=== PATIENT | female | born 1985 | race Caucasian/White ===

== ENCOUNTER 2017-04-18 12:11 | Emergency (ER) | payer OTHER ==
[2017-04-18 12:18] VITALS: BMI 22.8
[2017-04-18 13:33] LABS: HCG,QUALITATIVE URINE POSITIVE
[2017-04-18 13:35] LABS: URINE APPEARANCE SLCLOUDY; URINE BILIRUBIN NEGATIVE (NEGATIVE); URINE BLOOD 3+ (NEGATIVE); URINE COLOR LTYELLOW; URINE GLUCOSE (UA) NEGATIVE (NEGATIVE); URINE KETONE NEGATIVE (NEGATIVE); URINE NITRITE NEGATIVE (NEGATIVE); URINE PROTEIN NEGATIVE (NEGATIVE); URINE UROBILINOGEN NEGATIVE mg/dL (0.2-1.0)
[2017-04-18 13:36] LABS: URINE LEUK ESTERASE 1+ (NEGATIVE)
[2017-04-18 13:40] LABS: EPI CELLS RARE /HPF (FEW); URINE MUCUS RARE
[2017-04-18 14:10] LABS: BASO % 0.6 % (0-2.0); HEMATOCRIT 38.2 % (32.4-45.2); HEMOGLOBIN 12.5 GM/dL (10.7-15.3); LYMPH % 20.3 % (8-40); MCH 29.2 pg (25.7-33.7); MCHC 32.8 g/dl (32.0-36.0); MEAN CELL VOLUME 89.1 fl (80-96); MEAN PLT VOLUME 10.6 fl (7.5-11.1); MONO % 7.8 % (3.8-10.2); NEUT % 67.3 % (42.8-82.8); PLATELET COUNT 160 K/MM3 (134-434); RBC 4.28 M/mm3 (3.60-5.2); RDW 12.8 % (11.6-15.6); WHITE BLOOD COUNT 9.4 K/mm3 (4.0-10.0)
--- NOTE | 2017-04-18 14:10 | PDOC ---
History of Present Illness - General Chief Complaint: Vaginal Bleeding Stated Complaint: ABD PAIN (10 WKS ) Time Seen by Provider: 04/18/17 13:29 History Source: Patient, Spouse Exam Limitations: Language Barrier ( translating) - History of Present Illness Initial Comments: 04/18/17 14:08 The patient is a 31F with no PMH at 10 weeks by LMP (Jan 27) who presents to the ED with 3 days of vaginal bleeding and suprapubic pain. The patient states that the pain comes and goes, does not radiate, and is not made better or worse with anything. The vaginal bleeding is described as spotting, going through about 4 pads/day for 3 days. She has not passed any clots. She denies vaginal discharge. She denies dysuria, fever, chills, flank pain, nausea, vomiting. Past History - Past Medical History Allergies/Adverse Reactions: Allergies Allergy/AdvReac Type Severity Reaction Status Date / Time No Known Allergies Allergy Verified 04/18/17 12:18 Home Medications: Ambulatory Orders Nitrofurantoin Monohyd/M-Cryst [Macrobid -] 100 mg PO BID #14 capsule 04/18/17 COPD: No - Suicide/Smoking/Psychosocial Hx Smoking History: Never smoked Hx Alcohol Use: No Drug/Substance Use Hx: No Substance Use Type: None Review of Systems - Review of Systems Able to Perform ROS?: Yes Comments:: 04/18/17 14:42 GENERAL/CONSTITUTIONAL: No fever or chills. No weakness. HEAD, EYES, EARS, NOSE AND THROAT: No change in vision. No ear pain or discharge. No sore throat. GASTROINTESTINAL: Positive for suprapubic abdominal pain. No nausea, vomiting, diarrhea, or constipation. GENITOURINARY: Positive for vaginal bleeding. No dysuria, frequency, hematuria, or change in urination. CARDIOVASCULAR: No chest pain, palpitations, or lightheadedness. RESPIRATORY: No cough, wheezing, shortness of breath, or hemoptysis. MUSCULOSKELETAL: No joint or muscle swelling or pain. No neck or back pain. SKIN: No rash or lesions. NEUROLOGIC: No headache, numbness, tingling, weakness, loss of consciousness, or change in strength/sensation. ENDOCRINE: No increased thirst. No abnormal weight change. HEMATOLOGIC/LYMPHATIC: No anemia, easy bleeding, or history of blood clots. ALLERGIC/IMMUNOLOGIC: No hives or skin allergy. Is the patient limited Latvian proficient: No *Physical Exam - Vital Signs Last Vital Signs Temp Pulse Resp BP Pulse Ox 99.6 F 98 H 20 114/59 100 04/18/17 12:15 04/18/17 12:15 04/18/17 12:15 04/18/17 12:15 04/18/17 12:15 - Physical Exam Comments: 04/18/17 14:44 GENERAL: Well developed, well nourished. Awake and alert. No acute distress. HEENT: Normocephalic, atraumatic. Hearing grossly normal. Moist mucous membranes. NECK: Supple. Full ROM. No JVD. CARDIOVASCULAR: Regular rate and rhythm. No murmurs, rubs, or gallops. PULMONARY: No evidence of respiratory distress. Lungs clear to auscultation bilaterally. No wheezing, rales or rhonchi. ABDOMINAL: Soft. Non-tender. Non-distended. No rebound or guarding. GENITOURINARY: No CVA tenderness bilaterally. MUSCULOSKELETAL: Normal range of motion at all joints. No bony deformities or tenderness. PELVIC: Cervical os fingertip. Mild amount of blood seen in vaginal vault. String-like clots seen in vagina. No CMT. No adnexal tenderness or masses. EXTREMITIES: No cyanosis. No clubbing. No edema. No calf tenderness. SKIN: Warm and dry. Normal capillary refill. No rashes. No jaundice. NEUROLOGICAL: Alert, awake, appropriate. Cranial nerves 2-12 intact. Normal speech. Gait is normal without ataxia. PSYCHIATRIC: Cooperative. Good eye contact. Appropriate mood and affect. ED Treatment Course - LABORATORY CBC & Chemistry Diagram: 04/18/17 13:44 04/18/17 13:30 - ADDITIONAL ORDERS Additional order review: Laboratory Results 04/18/17 13:11 Urine Color Ltyellow Urine Appearance Slcloudy Urine pH 6.0 Ur Specific [place] 1.021 Urine Protein Negative Urine Glucose (UA) Negative Urine Ketones Negative Urine Blood 3+ H Urine Nitrite Negative Urine Bilirubin Negative Urine Urobilinogen Negative Urine WBC (Auto) 42 Urine RBC (Auto) 220 Ur Epithelial Cells Rare Urine Mucus Rare Urine HCG, Qual Positive - RADIOLOGY Radiology Studies Ordered: Category Date Time Status TRANSVAGINAL US PREG [US] Stat Ultrasound 04/18/17 13:44 Ordered Medical Decision Making - Medical Decision Making 04/18/17 14:44 The patient is a 31F with no PMH, at 10 weeks by LMP who presents to the ED with complaints of vaginal bleeding. I am concerned for an ectopic or . Will order labs and imaging. Will monitor closely. 04/18/17 14:53 CBC WNL. UA showing 3+ blood. Pending U/S. 04/18/17 16:46 US read showing: An intrauterine gestational sac is seen corresponding to an approximate gestational age of 6 weeks 6 days. No associated embryonic pole is noted and therefore the study is strongly suggestive of an anembryonic gestation. Correlate with beta hCG levels. Consider follow-up sonography. Within the gestational sac a 1.7 x 0.7 cm cystlike structure is noted which may represent an enlarged yolk sac versus intraluminal debris. Will give new patient escort referral and will need to trend B-HCG. Will treat possible UTI with macrobid. Patient understands and is ready for d/c. *DC/Admit/Observation/Transfer Diagnosis at time of Disposition: Anembryonic - Discharge Dispostion Disposition: HOME Condition at time of disposition: Stable Admit: No - Prescriptions Prescriptions: Nitrofurantoin Monohyd/M-Cryst [Macrobid -] 100 mg PO BID #14 capsule - Referrals Referrals: Sher Marin MD [Staff Physician] - - Patient Instructions Printed Discharge Instructions: DI for Miscarriage Additional Instructions: Please return to the ER if symptoms persist, worsen, or new symptoms arise. Please follow up with your primary care physician in 2-3 days. Please follow up with the new patient escort, Dr. Marin, in 1-3 days. Please return to the ER if you have any signs or symptoms of chest pain, shortness of breath, uncontrollable fever, chills, nausea, vomiting, numbness, tingling, or weakness in any part of your body, changes in vision, or slurred speech. Please come back if you have any increased vaginal bleeding and abdominal pain. Por favor regrese a la melissa de emergencias si los sntomas persisten, empeoran o surgen nuevos sntomas. Por favor, jeff un seguimiento con jackson mdico de atencin primaria en 2-3 paula. Por favor, jeff un seguimiento con el OB / [employer], Dr. Marin, en 1-3 paula. Por favor regrese a la melissa de emergencia si tiene signos o sntomas de dolor en el pecho, dificultad para respirar, fiebre incontrolable, escalofros, n useas, vmitos, entumecimiento, hormigueo o debilidad en cualquier parte de jackson cuerpo, cambios en la visin o dificultad para hablar. Vuelva por favor si tiene un aumento de sangrado vaginal y dolor abdominal. Print Language: ENGLISH - Post Discharge Activity
[2017-04-18 14:25] LABS: INR 1.01 (0.82-1.09); PROTHROMBIN TIME (PATIENT) 11.4 SEC (9.98-11.88)
[2017-04-18 14:28] LABS: ACTIVATED PTT 32.3 SECONDS (26.9-34.4)
[2017-04-18 14:56] LABS: ALBUMIN 3.8 g/dl (3.4-5.0); ANION GAP 9 (8-16); BLOOD UREA NITROGEN 10 mg/dL (7-18); CALCIUM 8.8 mg/dL (8.5-10.1); CHLORIDE 105 mmol/L (98-107); CO2 23 mmol/L (21-32); CREATININE 0.6 mg/dL (0.55-1.02); GLUCOSE,RANDOM 85 mg/dL (74-106); POTASSIUM 4.3 mmol/L (3.5-5.1); SGOT/AST 11 U/L (15-37); SGPT/ALT 25 U/L (12-78); SODIUM 137 mmol/L (136-145); TOT PROT 7.3 g/dl (6.4-8.2)
[2017-04-18 15:15] LABS: ALK PHOS 56 U/L (45-117); BILIRUBIN,TOTAL 0.6 mg/dL (0.2-1.0)
--- NOTE | 2017-04-18 16:12 | PDOC ---
Attending Attestation - Resident Resident Name: Rafa Perales - ED Attending Attestation I have performed the following: I have examined & evaluated the patient, The case was reviewed & discussed with the resident, I agree w/resident's findings & plan, Exceptions are as noted - Physicial Exam PE: 04/18/17 16:11 Patient is awake and alert, afebrile, hemodynamically stable nc, atr perrla, eomi cta + mild suprapubic ttp Pelvic exam: See note by Dr. Perales - Medical Decision Making 04/18/17 16:11 Patient is a 31-year-old female, 2 para 1 at 10 weeks gestation who presents with suprapubic abdominal pain and vaginal bleeding. Differential diagnosis includes ectopic versus threatened AB versus missed AB. We' ll obtain CBC/beta-HCG/type and screen/transvaginal ultrasound. Will reassess. <Isma Acosta - Last Filed: 04/18/17 16:10> - HPI HPI: 04/18/17 16:14 The patient is a 31 year old female approx 10 weeks , with no significant past medical history, who presents to the emergency department with , approx. 3 days of vaginal bleeding and suprapubic pain. Patient reports the suprapubic pain as intermittent, non radiating and not affected by movement. Patient describes the vaginal bleeding as spotting and denies dysuria or discharge. She denies recent fevers, chills, headache or dizziness. She denies recent nausea, vomit, diarrhea or constipation. She denies recent chest pain or shortness of breath. Documentation prepared by Johnathon Valles, acting as medical practice manager for Isma Acosta MD. <Johnathon Valles - Last Filed: 04/18/17 16:15>
[2017-04-18 17:44] VITALS: BP 104/62; PULSE 84; TEMP 98.5
== END 2017-04-18 17:35 | disposition home or self-care (01) ==
LOC: JER 12:11
DX: O26.891 Other specified pregnancy related conditions, first trimester (principal); O02.0 Blighted ovum and nonhydatidiform mole; Z3A.01 Less than 8 weeks gestation of pregnancy
CPT/HCPCS: 36415; 76817-TC; 80053; 81003; 81015; 84702; 84703; 85025; 85610; 85730; 86850; 86900; 86901; 99283-25

== ENCOUNTER 2017-04-20 15:18 | Emergency (ER) | payer OTHER ==
--- NOTE | 2017-04-20 15:20 | PDOC ---
Rapid Medical Evaluation Time Seen by Provider: 04/20/17 15:19 Medical Evaluation: Allergies Allergy/AdvReac Type Severity Reaction Status Date / Time No Known Allergies Allergy Verified 04/20/17 15:19 04/20/17 15:21 Pt presents to the ED with complaints of: passage of blood clot ? miscarriage, + abd cramping and vag bleed currently On brief exam: vss Pt ordered for: b hcg, cbc, u/s Pt to proceed to the ED Discharge Disposition - Diagnosis Vagina bleeding - Referrals - Patient Instructions - Post Discharge Activity
[2017-04-20 15:22] VITALS: BMI 22.8
[2017-04-20 15:34] LABS: BASO % 0.9 % (0-2.0); EOS % 3.2 % (0-4.5); HEMATOCRIT 37.9 % (32.4-45.2); HEMOGLOBIN 12.6 GM/dL (10.7-15.3); LYMPH % 21.9 % (8-40); MCH 29.3 pg (25.7-33.7); MCHC 33.2 g/dl (32.0-36.0); MEAN CELL VOLUME 88.3 fl (80-96); MONO % 7.2 % (3.8-10.2); NEUT % 66.8 % (42.8-82.8); PLATELET COUNT 177 K/MM3 (134-434); RDW 12.6 % (11.6-15.6); WHITE BLOOD COUNT 8.4 K/mm3 (4.0-10.0)
--- NOTE | 2017-04-20 16:17 | PDOC ---
History of Present Illness - General Chief Complaint: Vaginal Bleeding Stated Complaint: VAGINAL BLEEDING Time Seen by Provider: 04/20/17 15:19 History Source: Patient Exam Limitations: No Limitations - History of Present Illness Initial Comments: 04/20/17 16:13 Patient is a 31F here today complaining vaginal bleeding. She states that she passed some larger clots with some associated lower abdominal cramping. She visited the ED 2 days ago and an ultrasound showed an IUP with no pole two days ago. Type and screen showed O+ blood. Patient reports after passing the products her abdominal pain improved and has been improving. Denies fevers, chills, nausea and vomiting. She states that she is concerned if all the products have passed. Past History - Past Medical History Allergies/Adverse Reactions: Allergies Allergy/AdvReac Type Severity Reaction Status Date / Time No Known Allergies Allergy Verified 04/20/17 15:19 Home Medications: Ambulatory Orders Nitrofurantoin Monohyd/M-Cryst [Macrobid -] 100 mg PO BID #14 capsule 04/18/17 COPD: No - Reproductive History (#): 2 Para: 1 - Suicide/Smoking/Psychosocial Hx Smoking History: Never smoked Have you smoked in the past 12 months: No Information on smoking cessation initiated: No Hx Alcohol Use: No Drug/Substance Use Hx: No Substance Use Type: None Review of Systems - Review of Systems Comments:: 04/20/17 16:18 GENERAL/CONSTITUTIONAL: No fever or chills. No weakness. CARDIOVASCULAR: No chest pain or shortness of breath RESPIRATORY: No cough, wheezing, or hemoptysis. GASTROINTESTINAL: No nausea, vomiting, diarrhea or constipation. GENITOURINARY: No dysuria, frequency, or change in urination. MUSCULOSKELETAL: No joint or muscle swelling or pain. No neck or back pain. SKIN: No rash NEUROLOGIC: No headache, vertigo, loss of consciousness, or change in strength/ sensation. ENDOCRINE: No increased thirst. No abnormal weight change HEMATOLOGIC/LYMPHATIC: No anemia, easy bleeding, or history of blood clots. ALLERGIC/IMMUNOLOGIC: No hives or skin allergy. *Physical Exam - Vital Signs Last Vital Signs Temp Pulse Resp BP Pulse Ox 98.9 F 76 18 119/75 100 04/20/17 15:20 04/20/17 15:20 04/20/17 15:20 04/20/17 15:20 04/20/17 15:20 - Physical Exam Comments: 04/20/17 16:19 GENERAL: Awake, alert, and fully oriented, in no acute distress PELVIC: Normal external genitalia, closed os, small amount of dried blood in vaginal vault, nontender. HEAD: No signs of trauma, normocephalic, atraumatic EYES: PERRLA, EOMI, sclera anicteric, conjunctiva clear ENT: Auricles normal inspection, hearing grossly normal, nares patent, oropharynx clear without exudates. Moist mucosa NECK: Normal ROM, supple, no lymphadenopathy, JVD, or masses LUNGS: No distress, speaks full sentences, clear to auscultation bilaterally HEART: Regular rate and rhythm, normal S1 and S2, no murmurs, rubs or gallops, peripheral pulses normal and equal bilaterally. ABDOMEN: Soft, nontender, normoactive bowel sounds. No guarding, no rebound. No masses EXTREMITIES: Normal inspection, Normal range of motion, no edema. No clubbing or cyanosis. NEUROLOGICAL: Cranial nerves II through XII grossly intact. Normal speech, normal gait, no focal sensorimotor deficits SKIN: Warm, Dry, normal turgor, no rashes or lesions noted. ED Treatment Course - LABORATORY CBC & Chemistry Diagram: 04/20/17 15:24 - ADDITIONAL ORDERS Additional order review: 04/20/17 15:24 MCV 88.3 MCHC 33.2 RDW 12.6 MPV 11.0 Neutrophils % 66.8 Lymphocytes % 21.9 Monocytes % 7.2 Eosinophils % 3.2 Basophils % 0.9 Medical Decision Making - Medical Decision Making 04/20/17 17:22 31F here today with possible . Vital signs normal and stable. Will evaluate with US, CBC and beta quant. Type and screen O+ 2 days ago, proven IUP , will not require rhogam. 04/20/17 17:27 Laboratory Tests 04/20/17 15:26 Beta HCG, Quant 1808.4 Quant down to 1.8k from 8k two days ago. CBC pending. Lab notified. 04/20/17 17:32 CBC shows hgb 12.4, as reported orally by the lab. 04/20/17 17:50 US shows endometrial thickening to 14mm, no embryo. Will discharge with OB follow up and return precautions. *DC/Admit/Observation/Transfer Diagnosis at time of Disposition: Vagina bleeding - Discharge Dispostion Disposition: HOME Condition at time of disposition: Good Admit: No - Referrals Referrals: Antonino Montez MD [Staff Physician] - - Patient Instructions Printed Discharge Instructions: DI for Miscarriage Additional Instructions: Please return if you have any new, worsening or concerning symptoms, especially heavy vaginal bleeding (more than 2 pads per hours), chest pain, and shortness of breath. Please follow up with OBGYN next week, a number has been provided for you in your discharge paperwork. Print Language: TOGOLESE - Post Discharge Activity
--- NOTE | 2017-04-20 16:25 | PDOC ---
Attending Attestation - Resident Resident Name: Terell Gautam - ED Attending Attestation I have performed the following: I have examined & evaluated the patient, The case was reviewed & discussed with the resident, I agree w/resident's findings & plan, Exceptions are as noted - HPI HPI: 04/20/17 16:24 31F F 7 weeks + 1 day by US, seen here 2 days ago for likely spontaneous p/w continued vaginal bleeding requesting US to see if her is complete. Pt states she saw larger clots in her pad twice and initially had mild abd cramping but no longer has abd pain. Denies f/c, cp, sob , LE edema, headaches, focal weakness or numbness. - Physicial Exam PE: 04/20/17 16:29 agree with resident exam - Medical Decision Making 04/20/17 17:00 31yo F p/w likely continued spontaneous . Will check H&H for stability and repeat TVUS. 04/20/17 17:56 TVUS with intrauterine gest sac no longer visualized and endometrium is thickened likely 2/2 blood products. Results discussed with patient who remains asymptomatic, did not have further bleeding in ED. Discussed with patient that she may continue to have some bleeding but advised her that if she soaks >3 pads /hr for more than 3 hours to return to the ED. HGB today stable compared to 2 days ago (results reported orally by lab as they are not transmitting through the EMR). Advised her to see her OB in 2-3 days. I discussed the physical exam findings, ancillary test results and final diagnoses with the patient. I answered all of the patient's questions. The patient was satisfied with the care received and felt comfortable with the discharge plan and treatment plan. The patient will call her OB within 24 hours to arrange follow-up and will return to the Emergency Department with any new, persistent or worsening symptoms.
[2017-04-20 18:45] VITALS: BP 123/78; PULSE 77; TEMP 98.2
== END 2017-04-20 18:20 | disposition home or self-care (01) ==
LOC: JER 15:18
DX: O26.891 Other specified pregnancy related conditions, first trimester (principal); O03.4 Incomplete spontaneous abortion without complication
CPT/HCPCS: 36415; 76801-TC; 84702; 85025; 99282-25

== ENCOUNTER 2021-02-15 15:43 | Emergency (ER) | payer OTHER ==
[2021-02-15 15:59] VITALS: BP 152/74; PULSE 72; TEMP 98.5; BMI 24.4
== END 2021-02-15 16:59 | disposition home or self-care (01) ==
LOC: JERFT 15:43
DX: L98.0 Pyogenic granuloma (principal)
CPT/HCPCS: 99281-25